=== PATIENT | female | born 1950 | race Caucasian/White ===

== ENCOUNTER 2016-04-27 10:05 | Day surgery (SDC) | payer MEDICARE ==
[2016-04-25 07:56] VITALS: BMI 34.5
--- NOTE | 2016-04-26 15:12 | HP ---
DATE OF ADMISSION: 04/27/2016 Luzma You is a 65-year-old patient seen with progressive right knee pain. After having treatment options discussed, she elected to proceed with right knee arthroscopy. Consent was obtained. Past medical history is noncontributory. Past surgical history is carpal tunnel release, section, cholecystectomy, right foot surgery, left knee arthroscopy. DAILY MEDICATION: Zoloft. Allergies are PENICILLIN, BACTRIM. SOCIAL HISTORY: Patient denies tobacco use. Physical evaluation of right knee: Range of motion 0 to 125 degrees, tenderness along the medial and lateral joint lines. Positive medial Shai's. Ligaments stable. Hip rotation without pain. Distal neurovascular exam intact. Radiographs of the right knee revealed moderate medial compartment osteoarthritis. An MRI of the right knee revealed medial and lateral meniscal tears. IMPRESSION: Internal derangement of right knee with medial and lateral meniscal tears. PLAN: Right knee arthroscopy with partial meniscectomy and debridement.
[~2016-04-27 10:05] MED LIST: DEXAMETHASONE SOD PHOSPHATE 10 MG/ML 1 ML VIAL IV ONE; HYDROmorphone 1 MG/ML 1 ML SYRINGE IVP PRN; LACTATED RINGERS 1,000 ML IV SCH; LIDOCAINE 1% 20 ML VIAL (10MG/ML) FOR IV START INTRADERMA PRN; MIDAZOLAM 2 MG/2 ML VIAL IV PRN; SCOPOLAMINE 1.5MG/72HR PATCH TRANSDERM ONE; ceFAZolin 2 GM in SODIUM CHLORIDE 0.9% 100 ML IVPB ONE
[2016-04-27 10:50] VITALS: RESP 16
[2016-04-27] MEDS ORDERED: LACTATED RINGERS 1,000 ML IV ONE ×2 (10:53→14:10)
[2016-04-27] MEDS ORDERED: LIDOCAINE 1% 20 ML VIAL (10MG/ML) FOR IV START SQ ONE (10:54)
[2016-04-27] MEDS: ONDANSETRON 4 MG/2 ML VIAL IVP ONE ×2 (10:55→14:08)
[2016-04-27] MEDS ORDERED: PROPOFOL 10 MG/ML 20 ML VIAL IV ONE (12:35)
[2016-04-27] MEDS ORDERED: MIDAZOLAM 2 MG/2 ML VIAL ONE (12:35)
[2016-04-27] MEDS ORDERED: LIDOCAINE 1% INJ 10MG/ML (20 ML MDV) ONE (12:35)
[2016-04-27] MEDS ORDERED: HYDROmorphone (PF) 1 MG/ML ONE (12:35)
[2016-04-27] MEDS ORDERED: GLYCOPYRROLATE 0.2 MG/ML 2 ML VIAL ONE (12:35)
[2016-04-27] MEDS ORDERED: NEOSTIGMINE 1 MG/ML 10 ML VIAL ONE (12:35)
[2016-04-27] MEDS ORDERED: fentaNYL (PF) 50 MCG/ML 2 ML AMP ONE (12:35)
[2016-04-27] MEDS ORDERED: ROCURONIUM BROMIDE 10 MG/ML 10 ML VIAL IV ONE (12:35)
[2016-04-27] MEDS ORDERED: SUCCINYLCHOLINE CHLORIDE 100 MG/5 ML SYR IV ONE (12:35)
[2016-04-27 13:32] VITALS: TEMP 97.5
--- NOTE | 2016-04-27 13:32 | P.OP ---
Date of Procedure: 04/27/16 Preoperative Diagnosis: Internal derangement right knee Postoperative Diagnosis: 1. Tear medial and lateral meniscus right knee 2. Grade 3/4 chondromalacia medial femoral condyle right knee 3. Grade 3/4 chondromalacia lateral femoral condyle right knee 4. Grade 2/3 chondromalacia patella right knee 5. Reactive synovitis medial and suprapatellar compartments right knee Procedure(s) Performed: 1. Arthroscopic partial medial and lateral meniscectomy right knee 2. Arthroscopic chondroplasty medial femoral condyle right knee 3. Arthroscopic chondroplasty lateral femoral condyle right knee 4. Arthroscopic chondroplasty patella right knee 5. Arthroscopic partial synovectomy medial and suprapatellar compartments right knee Anesthesia: FANNY Surgeon: Joseph Rodney Estimated Blood Loss (ml): 10 Pathology: none sent Condition: stable Disposition: PACU Indications for Procedure: 65-year-old patient seen with progressive right knee pain. After having treatment options discussed, she elected to proceed with right knee arthroscopy. Operative Findings: see description of procedure Description of Procedure: Patient was taken to the operative suite. Patient underwent a general anesthetic by the department of anesthesia. Patient was given preoperative antibiotics. The right lower extremity was placed in a well-padded arthroscopic leg thompson. The right leg was prepped and draped in the normal sterile orthopedic fashion. A lateral parapatellar and suprapatellar incision was made. Trochars were inserted. Arthroscopy was initiated. Suprapatellar pouch revealed diffuse thick reactive synovitis. The patellofemoral joint appeared to articulate congruently. There was grade 2/3 chondromalacia. The scope was guided into the medial gutter. No loose bodies or plica identified. The scope was then guided into the medial compartment. A medial parapatellar incision was made. Trocar inserted followed by probe. There was a complex tear involving the posterior horn and midbody of the medial meniscus. There were grade 3/4 chondromalacia changes of the medial femoral condyle and grade 3 chondral malacia changes of the tibial plateau. Reactive synovitis anteriorly. Various hand basket instruments were introduced and a partial medial meniscectomy was performed on a stable tissue. I performed a chondroplasty medial femoral condyle. There is of the residual meniscus was probed and found to be stable. Scope and probe were then guided into the intercondylar notch. Cruciates were identified, probed and found to be stable. The scope and probe were then guided into lateral compartment. There was a radial tear involving the posterior horn and midbody of the lateral meniscus. There were grade 3/4 chondral malacia changes lateral femoral condyle and grade 3 chondromalacia of the tibial plateau. A partial lateral meniscectomy was performed on a stable tissue. I performed a chondroplasty of lateral femoral condyle and partial synovectomy. The residual meniscus was probed and found to be stable. The scope was in guided back into the suprapatellar compartment. A motorized shaver was introduced into the super compartment debriding out piecemeal fragments of meniscus. I performed a partial synovectomy. I performed a chondroplasty of the patella. The shaver was removed. I took one more look around the entire knee, no residual debris. Instruments were now removed from the joint. The joint was infiltrated with .25% Marcaine. Steri-Strips were applied to the portal sites. Sterile dressings were applied. The patient was placed into a ARYAN hose. No tourniquet was utilized. The patient was awakened, transferred to a bed and taken to recovery stable satisfactory condition.
[2016-04-27] MEDS ORDERED: METOCLOPRAMIDE 5 MG/ML 2 ML VIAL IVP ONE (14:30)
[2016-04-27 17:20] VITALS: BP 129/72; PULSE 98
== END 2016-04-27 17:00 | disposition home or self-care (01) ==
LOC: OR 10:05
PROVIDERS: ATTEND Orthopaedic Surgery
DX: S83.241A Other tear of medial meniscus, current injury, right knee, initial encounter (principal); S83.281A Other tear of lateral meniscus, current injury, right knee, initial encounter; X58.XXXA Exposure to other specified factors, initial encounter; M22.41 Chondromalacia patellae, right knee; M94.261 Chondromalacia, right knee; M65.861 Other synovitis and tenosynovitis, right lower leg; F41.9 Anxiety disorder, unspecified; F32.9 Major depressive disorder, single episode, unspecified; Z79.899 Other long term (current) drug therapy; Z88.0 Allergy status to penicillin; Z88.2 Allergy status to sulfonamides
CPT/HCPCS: 29880; J2250; J1100; J2710; J2765; J0690; J2405; J2001; J3010; J1170; J0330; J2704

== ENCOUNTER → 2017-10-26 | Outpatient (CLI) | payer MEDICARE ==
--- NOTE | 2017-10-27 08:56 | ECHOF ---
Referral Reason:R01.1 Cardiac Murmur Unspecified MEASUREMENTS -------- HEIGHT: 157.5 cm WEIGHT: 85.7 kg BP: RVIDd: 2.5 cm (< 3.3) IVSd: 1.2 cm (0.6 - 1.1) LVIDd: 4.0 cm (3.9 - 5.3) LVPWd: 1.2 cm (0.6 - 1.1) IVSs: 1.6 cm LVIDs: 2.2 cm LVPWs: 1.6 cm LAESV Index (A-L): 33.28 ml/m Ao Diam: 2.9 cm (2.0 - 3.7) AV Cusp: 1.5 cm (1.5 - 2.6) LA Diam: 3.5 cm (2.7 - 3.8) EPSS: 0.3 cm MV E Cb: 0.93 m/s MV DecT: 244 ms MV A Cb: 0.85 m/s MV E/A Ratio: 1.10 RAP: 5.00 mmHg RVSP: 31.01 mmHg MV EF SLOPE: 100.86 mm/s (70 - 150) MV EXCURSION: 1.49 cm (> 18.000) FINDINGS -------- Sinus rhythm. This was a technically adequate study. The left ventricular size is normal. There is mild concentric left ventricular hypertrophy. Overa ll left ventricular systolic function is normal with, an EF between 55 - 60 %. The right ventricle is normal in size and function. LA is midly dilated 29-33ml/m2. The right atrium is normal in size. Aortic valve is trileaflet and is mildly thickened. Trace to mild aortic regurgitation. There is no evidence of aortic stenosis. The mitral valve leaflets are mildly thickened. There is trace to mild mitral regurgitation. Trace tricuspid regurgitation present. Right ventricular systolic pressure is normal at < 35 mmHg. There is no evidence of pulmonary hypertension. The pulmonic valve was not well visualized. The aortic root size is normal. Normal inferior vena cava with normal inspiratory collapse consistent with estimated right atrial pre ssure of 5 mmHg. There is no pericardial effusion. CONCLUSIONS -------- 1. Sinus rhythm. 2. This was a technically adequate study. 3. The left ventricular size is normal. 4. There is mild concentric left ventricular hypertrophy. 5. Overall left ventricular systolic function is normal with, an EF between 55 - 60 %. 6. LA is midly dilated 29-33ml/m2. 7. Aortic valve is trileaflet and is mildly thickened. 8. Trace to mild aortic regurgitation. 9. The mitral valve leaflets are mildly thickened. 10. There is trace to mild mitral regurgitation. 11. Trace tricuspid regurgitation present. 12. Right ventricular systolic pressure is normal at < 35 mmHg. 13. There is no evidence of pulmonary hypertension. 14. The pulmonic valve was not well visualized. 15. The aortic root size is normal. 16. There is no pericardial effusion. BLUNGER: Alejandro Rocha RDCS
== END | disposition home or self-care (01) ==
LOC: RADECHMAIN 15:01
PROVIDERS: ATTEND Family Medicine
DX: I08.3 Combined rheumatic disorders of mitral, aortic and tricuspid valves (principal)
CPT/HCPCS: 93306

== ENCOUNTER → 2017-11-06 | Outpatient (CLI) | payer MEDICARE ==
--- NOTE | 2017-11-06 08:44 | US ---
EXAMINATION TYPE: US abdomen complete DATE OF EXAM: 11/06/2017 COMPARISON: Ultrasound of 2011 CLINICAL HISTORY: R10.11 RT UPPER QUADRANT PAIN. RUQ pain ongoing, no known injury, cholecystectomy EXAM MEASUREMENTS: Liver Length: 15.0 cm Gallbladder Wall: Surgically absent CBD: 0.6 cm Spleen: 10.3 cm Right Kidney: 10.6 x 4.4 x 3.7 cm Left Kidney: 10.4 x 3.1 x 4.2 cm Pancreas: wnl Liver: intercostal images due to bowel gas. Hepatic echotexture is slightly hyperechoic with diminis hed visualization of the portal triads. This most commonly relates to hepatic steatosis and limits ev aluation of underlying hepatic masses. Gallbladder: Surgically absent Evidence for sonographic Mcdonald's sign: no CBD: wnl Spleen: wnl Right Kidney: No hydronephrosis or nephrolithiasis. The previously seen echogenic renal mass is not well visualized on today's examination. Left Kidney: No hydronephrosis or nephrolithiasis. The previously seen echogenic renal mass is not well visualized on today's examination. Upper IVC: wnl Abd Aorta: proximal area gassed out IMPRESSION: 1. Status post cholecystectomy. 2. Findings suggesting a mild degree of hepatic steatosis. 3. 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 Bowel gas also limits evaluation of the proximal ab dominal aorta.
== END | disposition home or self-care (01) ==
LOC: RADUSWWP 06:52
PROVIDERS: ATTEND Family Medicine
DX: R10.11 Right upper quadrant pain (principal); Z90.49 Acquired absence of other specified parts of digestive tract
CPT/HCPCS: 76700

== ENCOUNTER → 2017-11-21 | Outpatient (CLI) | payer MEDICARE ==
[2017-11-21 08:41] LABS: Blood Urea Nitrogen 14 mg/dL (7-17)
--- NOTE | 2017-11-21 10:44 | CT ---
EXAMINATION TYPE: CT abdomen w con DATE OF EXAM: 11/21/2017 HISTORY: RUQ pain, swelling, history of lymphoma (Lt neck) CT DLP: 658.5mGycm Automated Exposure Control for Dose Reduction was Utilized. CONTRAST: CT scan of the abdomen is performed with IV Contrast, patient injected with 100 mL of Isovue 300. COMPARISON: CT abdomen and pelvis October 28, 2014. Recent complete abdominal ultrasound November 06, 2017. FINDINGS: LUNG BASES: There is suspected moderate biatrial dilatation. Heart size is upper limits of normal. LIVER/GB: Cholecystectomy clips are redemonstrated. Liver is heterogeneously hypodense suggesting mil d fatty infiltration as suspected on recent ultrasound. PANCREAS: No significant abnormality is seen. SPLEEN: No significant abnormality is seen. ADRENALS: No significant abnormality is seen. KIDNEYS: There is redemonstration of a few scattered subcentimeter low dense lesions throughout both kidneys too small to further characterize but presumed benign favoring fat density or angiomyolipomas . BOWEL: There is slightly more prominent small to moderate size sliding-type hiatal hernia. The oral c ontrast only reaches proximal ileal level. There is no suspicious small or large bowel dilatation. Th ere is fecal filled prominence of terminal ileum suggesting delayed passage of ingested material 2 co lonic level. Mild wall thickening in the colon at level of splenic flexure is present presumed produc t of poor distention over mild focal colitis. A few scattered colonic diverticula are seen. No CT jairon dence for acute diverticulitis. LYMPH NODES: No greater than 1cm abdominal lymph nodes are appreciated. OSSEOUS STRUCTURES: There is exaggerated thoracolumbar curvature. There is moderate to severe multile ericka spurring in the thoracic and upper lumbar spine. There is moderate disc space narrowing with vacu um disc phenomenon and endplate sclerosis L1-L2 level. There is slight grade 1 anterolisthesis of L4 on L5. There is multilevel facet arthropathy in the mid to lower lumbar spine. OTHER: There is mild to moderate calcified plaque of aorta extending into branch vessels IMPRESSION: No hepatosplenomegaly. No suspicious new adenopathy.
== END | disposition home or self-care (01) ==
LOC: RADCTMAIN 07:52
PROVIDERS: ATTEND Family Medicine
DX: R10.9 Unspecified abdominal pain (principal)
CPT/HCPCS: 82565; 84520; 74160; 36415; Q9967

== ENCOUNTER → 2019-06-20 | Outpatient (CLI) | payer MEDICARE ==
[2019-06-20 14:11] LABS: Basophils # (A) 0.1 k/uL (0-0.2); Basophils % (A) 1 %; Eosinophils # (A) 0.1 k/uL (0-0.7); Eosinophils % (A) 2 %; HCT 46.7 % (34.0-46.0); HGB 14.9 gm/dL (11.4-16.0); Lymphocytes # (A) 2.5 k/uL (1.0-4.8); Lymphocytes % (A) 35 %; MCH 30.6 pg (25.0-35.0); MCV 95.5 fL (80.0-100.0); Mean Platelet Volume 7.9; Monocytes # (A) 0.5 k/uL (0-1.0); Monocytes % (A) 7 %; Neutrophils # (A) 3.5 k/uL (1.3-7.7); Neutrophils % (A) 51 %; Platelet Count 230 k/uL (150-450); RBC 4.89 m/uL (3.80-5.40); RDW 13.1 % (11.5-15.5); WBC 6.9 k/uL (3.8-10.6)
[2019-06-20 14:18] LABS: Prothrombin Time 10.3 sec (9.0-12.0)
[2019-06-20 14:47] LABS: Potassium 4.7 mmol/L (3.5-5.1)
== END | disposition home or self-care (01) ==
LOC: LABPAT 12:48
PROVIDERS: ATTEND Orthopaedic Surgery
DX: Z01.818 Encounter for other preprocedural examination (principal); Z01.812 Encounter for preprocedural laboratory examination; M17.11 Unilateral primary osteoarthritis, right knee; Z51.81 Encounter for therapeutic drug level monitoring; Z79.01 Long term (current) use of anticoagulants
CPT/HCPCS: 36415; 80051; 85025; 85610; 87070; 93005

== ENCOUNTER → 2019-11-07 | Outpatient (CLI) | payer MEDICARE | LOC: LABPAT 11:27 | PROVIDERS: ATTEND Orthopaedic Surgery | DX: Z01.812 Encounter for preprocedural laboratory examination (principal) | CPT/HCPCS: 87070 ==

== ENCOUNTER 2019-12-08 08:14 | Day surgery (SDC) | payer MEDICARE ==
[2019-12-01 14:50] VITALS: BMI 33.0
--- NOTE | 2019-12-06 21:59 | HP ---
HISTORY AND PHYSICAL DATE OF SURGERY: 12/08/2019 Luzma You is a 69-year-old patient seen with progressive symptomatic right knee osteoarthritis. We discussed options for treatment. She elected to proceed with right total knee arthroplasty. Consent was obtained. Clearance was provided by Dr. Selby. PAST MEDICAL HISTORY: Noncontributory. PAST SURGICAL HISTORY: Carpal tunnel release, section, cholecystectomy, right foot surgery, left knee surgery. MEDICATIONS: Zoloft. ALLERGIES: PENICILLIN and BACTRIM. SOCIAL HISTORY: She denies tobacco use. PHYSICAL EXAMINATION: Evaluation right knee: Range of motion is -2/3-120. Tenderness medial joint line. Crepitus medial patellofemoral compartments with range of motion. Pain with patellofemoral compression. Ligaments stable. Hip rotation without pain. Distal neurovascular exam intact Right knee radiographs reveal severe osteoarthritic changes. IMPRESSION: Right knee osteoarthritis. PLAN: Right total knee arthroplasty. MMODL / IJN: [id number] /
[~2019-12-08 08:14] MED LIST changes: +ACETAMINOPHEN TAB 500 MG TAB PO ONE; -DEXAMETHASONE SOD PHOSPHATE 10 MG/ML 1 ML VIAL IV ONE; +HYDROmorphone 0.5 MG/0.5 ML SYRINGE IVP PRN; -HYDROmorphone 1 MG/ML 1 ML SYRINGE IVP PRN; +LIDOCAINE 1% (10MG/ML) FOR IV START INTRADERMA PRN; -LIDOCAINE 1% 20 ML VIAL (10MG/ML) FOR IV START INTRADERMA PRN; +MELOXICAM 7.5 MG TAB PO ONE; -MIDAZOLAM 2 MG/2 ML VIAL IV PRN; +ONDANSETRON 4 MG/2 ML VIAL IVP ONE; +ROPIVACAINE 246.25 MG, EPINEPHrine 0.5 MG, KETOROLAC 30 MG, cloNIDine HCL/PF 80 MCG, WA... MISCELLANE ONE; -SCOPOLAMINE 1.5MG/72HR PATCH TRANSDERM ONE; +TRANEXAMIC ACID 1,000 MG in SODIUM CHLORIDE 0.9% 100 ML IVPB ONE; -ceFAZolin 2 GM in SODIUM CHLORIDE 0.9% 100 ML IVPB ONE
[2019-12-08] MEDS ORDERED: MIDAZOLAM 2 MG/2 ML VIAL IVP ONE ×2 (08:15→09:24)
[2019-12-08] MEDS ORDERED: ACETAMINOPHEN TAB 500 MG TAB ONE (08:49)
[2019-12-08] MEDS ORDERED: ONDANSETRON 4 MG/2 ML VIAL ONE (08:49)
[2019-12-08] MEDS ORDERED: fentaNYL (PF) 50 MCG/ML 2 ML AMP IVP ONE (09:24)
[2019-12-08] MEDS ORDERED: ROPIVACAINE 0.2%-NS ON-Q PUMP 1,090 MG, EMPTY PAIN BALL 1 EACH MISCELLANE PRN ×2 (09:24→10:40)
[2019-12-08] MEDS ORDERED: PROPOFOL 10 MG/ML 20 ML VIAL IV ONE (10:00)
[2019-12-08] MEDS ORDERED: KETAMINE 10 MG/ML 20 ML VIAL ONE (10:00)
[2019-12-08] MEDS ORDERED: HYDROmorphone (PF) 1 MG/ML ONE (10:00)
[2019-12-08] MEDS ORDERED: MIDAZOLAM 2 MG/2 ML VIAL ONE (10:00)
[2019-12-08] MEDS ORDERED: ceFAZolin 3,000 MG in SODIUM CHLORIDE 0.9% IRRIGATIO 3,000 ML IRRIGATION ONE (10:36)
--- NOTE | 2019-12-08 10:42 | P.ANPRN ---
Procedure Note - Anesthesia - Nerve Block Performed Right Adductor Canal Infusion Time Out Performed: Yes Date of Procedure: 12/08/19 Procedure Start Time: 09:00 Procedure Stop Time: 09:10 Location of Patient: PreOp Indication: Acute Post-Operative Pain, Dx/Pain Location, Requested by Surgeon Sedation Type: Sedate with meaningful contact maintained Preparation: Sterile Prep Position: Supine Catheter: Indwelling Needle Types: Pajunk Needle Gauge: 21 Ultrasound used to visualize needle placement: Yes Ultrasound used to observe medication spread: Yes Injectate: 0.5% Ropivacaine (see comment for volume) (20ml) Blood Aspirated: No Pain Paresthesia on Injection Noted: No Resistance on Injection: Normal Image Stored and Saved: Yes Events: Uneventful and Well Tolerated
[2019-12-08] MEDS ORDERED: LACTATED RINGERS 1,000 ML IV ONE ×2 (11:02)
[2019-12-08] MEDS ORDERED: NALOXONE 0.4 MG/ML 1 ML VIAL IV PRN (11:40)
[2019-12-08] MEDS ORDERED: ONDANSETRON 4 MG/2 ML VIAL IVP PRN (11:40)
[2019-12-08] MEDS ORDERED: HYDROmorphone 0.5 MG/0.5 ML SYRINGE IVP PRN ×3 (11:40)
[2019-12-08] MEDS ORDERED: HYDROcodone/APAP 5-325MG 1 EACH TAB PO PRN ×2 (11:40)
--- NOTE | 2019-12-08 11:40 | P.OP ---
Date of Procedure: 12/08/19 Preoperative Diagnosis: Right knee osteoarthritis Postoperative Diagnosis: Right knee osteoarthritis Procedure(s) Performed: Right total knee arthroplasty Implants: 1. Depuy attune size 4 right cruciate retaining cemented femur 2. Depuy attune size 4 fixed bearing cemented tibial baseplate 3. Depuy attune size 4 fixed bearing cruciate retaining 12 mm polyethylene tibial insert 4. Depuy attune 35 mm all polyethylene cemented patella Anesthesia: regional (Adductor canal catheter), local, spinal Surgeon: Joseph Rodney Laboratory Secretary #1: Rj Floyd Estimated Blood Loss (ml): 45 Pathology: other (Bone) Condition: stable Disposition: PACU Indications for Procedure: 69-year-old patient seen with symptomatic right knee osteoarthritis. After having treatment options discussed, she elected to proceed with total knee arthroplasty. Operative Findings: see description of procedure Description of Procedure: Patient was taken to the operative suite after having an adductor canal catheter placed by the department of anesthesia. Patient underwent a spinal anesthetic by the department of anesthesia. Patient was given preoperative IV intake antibiotics and TXA. A well-padded tourniquet was placed about the right lower extremity. The lower extremity was then prepped and draped in the normal sterile orthopedic fashion. The extremity was elevated, a tourniquet was insufflated to 300. A standard anterior incision was made sharply through skin. Dissection was taken down through the subcutaneous soft tissues down to the extensor mechanism. A medial arthrotomy was performed, patella was everted and knee was flexed. There was advanced osteoarthritis noted. I introduced my distal intramedullary femoral drill. I then introduced the distal femoral cutting jig. Kendall ALEMAN secured the cutting jig with 2 pins. I held retractors in position while Kendall ALEMAN performed the distal femoral resection through the guide area we now removed her distal femoral cutting guide. We now placed our 4-in-1 femoral cutting block and positioned and it was secured with 2 pins by Kendall ALEMAN while I held the block in position. The distal femoral finishing was now completed. A proximal tibial cutting guide was positioned. I held the guide in the appropriate position with both hands well Kendall ALEMAN inserted stabilizing pins into the guide. Proximal tibial cut was made. We now placed a trial femoral component into position, along with an appropriate size tibial tray and insert. We now took the knee through range of motion and had full extension good flexion and good overall soft tissue balance noted. The patella was everted and stabilized with 2 towel clips held by Kendall ALEMAN while I performed a flush with patellar quad tendon utilizing a fresh sawblade. We templated the patella, appropriate drill holes were made. An appropriate trial patella was positioned, knee was taken through full range of motion with the patella tracking very nicely. The trial patella was removed. Drill holes were made through the femoral component. All trial components were removed after marking off the appropriate rotation of the tibia. Retractors were now positioned along the proximal tibia. An appropriate keel punch was made with the appropriate size tibial guide by myself on Kendall ALEMAN assisted by holding retractors. At this point appropriate size implants were chosen and opened. The joint was irrigated copiously with pulse lavage mechanical irrigation. The posterior capsule was infiltrated with local analgesic. The wound was irrigated with pulse lavage mechanical irrigation. We mixed antibiotic methylmethacrylate. We placed the knee into flexion. We placed multiple retractors assisted by Kendall ALEMAN to expose the proximal tibia. Once the methyl methacrylate was ready, the tibial component was cemented into place removing any excess methylmethacrylate form by both myself and Kendall ALEMAN. The femoral component was cemented into place removing the removing any excess methylmethacrylate performed by both myself and Kendall ALEMAN. We then inserted the appropriate size polyethylene tibial insert. We made sure that it was locked into position. We took the knee into full extension, and then back in a flexion making sure we had removed any excess methylmethacrylate. The patellar component was then cemented down and secured with clamp. Excess methylmethacrylate removed. We kept the knee in full extension, patellar clamp in position until methylmethacrylate had hardened. Once it had hardened the p atellar clamp was removed. The knee was taken through full range of motion. The patella tracked nicely. There was good soft tissue balancing. The tourniquet was now released. Additional hemostasis was achieved via electrocautery. A second gram of TXA was given. The wound again was irrigated with pulse lavage mechanical irrigation. The superficial soft tissues were infiltrated local analgesic. The extensor mechanism was repaired with Vicryl. We checked the repair with range of motion and it was stable. The subcutaneous soft tissues were repaired with Vicryl in layers. The skin was approximated with pernio/Dermabond. Sterile dressings were applied followed by loose web roll and Robb bandage. The patient was transferred to a bed, and taken to recovery in stable and satisfactory condition. Kendall ALEMAN assisted with this complex procedure.
--- NOTE | 2019-12-08 13:58 | XR ---
EXAMINATION TYPE: XR knee limited RT DATE OF EXAM: 12/08/2019 COMPARISON: None HISTORY: Post knee replaced TECHNIQUE: 2 view right knee FINDINGS: Tibial and femoral components of in place. No acute fractures are evident. Postsurgical ben nges are within the soft tissues. IMPRESSION: 1. No acute fracture post knee replacement.
[2019-12-08] MEDS: LACTATED RINGERS 1,000 ML IV SCH ×3 (20:14→23:38)
--- NOTE | 2019-12-08 20:25 | P.CONS ---
History of Present Illness - Reason for Consult Consult date: 12/08/19 Medical management Requesting physician: Joseph Rodney - Chief Complaint Right knee surgery - History of Present Illness Consultation: This is a 69-year-old patient of Dr. Selby. Patient has undergone right total knee arthroplasty. Patient had progressive symptoms in the right knee. Tried conservative management. Did not work. Has proceeded with surgery. Pain pretty much localized to right knee. Worse with activity and better with rest. Postprocedure patient is having nausea. Tired. at the bedside. No chest pain or shortness of breath Review of systems: GEN.: None EYES: None HEENT: None NECK: None RESPIRATORY: None CARDIOVASCULAR: Nausea GASTROINTESTINAL: None GENITOURINARY: None MUSCULOSKELETAL: [place] knee pain LYMPHATICS: None HEMATOLOGICAL: None PSYCHIATRY: None NEUROLOGICAL: None Past medical history to include: Cedric arthritis, melanoma the left shoulder in 2003, including the left. Had chemotherapy for a year. Constipation. Anxiety Social history: . No history of smoking or alcohol. Homemaker Physical examination: VITAL SIGNS: 97.6, 99, 17, 154/79, 96% room air GENERAL: BMI 32.9, propped up in bed, sleepy. EYES: Pupils equal. Conjunctiva normal. HEENT: External appearance of nose and ears normal, oral cavity grossly normal. NECK: JVD not raised; masses not palpable. HEART: First and second heart sounds are normal; no edema. LUNGS: Respiratory rate normal; clear to auscultation. ABDOMEN: Soft, nontender, liver spleen not palpable, no masses palpable. PSYCH: Oriented 3, sleepy but arousablel. MUSCULAR skeletal: Dressing over the right knee. Evidence of OA the hands NEUROLOGICAL: Cranial nerves grossly intact; no facial asymmetry, power and sensation grossly intact. LYMPHATICS: No lymph nodes palpable in the axilla and neck Investigations: None Assessment: -Right total knee arthroplasty -Primary osteoarthritis -Anxiety not otherwise specified -Postop nausea as a side effect of medications -Obesity BMI 32.9 Plan: Home medications to be resumed. Patient will Lovenox for DVT prophylaxis. Pain control in place. Getting IV fluids. Antinausea medications given. Discussed with the patient and the . Questions answered. Thank you Dr. Suresh Past Medical History Past Medical History: Cancer, Osteoarthritis (OA) Additional Past Medical History / Comment(s): MELANOMA LT SHOULDER 2003, THEN TO LT NECK AND LYMPH NODES 2006, chemo for a year, constipation History of Any Multi-Drug Resistant Organisms: None Reported Past Surgical History: Section, Cholecystectomy, Orthopedic Surgery Additional Past Surgical History / Comment(s): OOPHORECTOMY. LT KNEE LIGAMENT SURG-CADAVER USED. FATIMAH FEET, HANDS. EXC MELANOMA SKIN LT SHOULDER; LATER HAD EXC FROM NECK AND LYMPH NODES, arthroscopy right knee Past Anesthesia/Blood Transfusion Reactions: Previous Problems w/ Anesthesia, Postoperative Nausea & Vomiting (PONV) Additional Past Anesthesia/Blood Transfusion Reaction / Comm: TAKES LONG TIME TO AWAKEN FROM ANESTHESIA. Past Psychological History: Anxiety Smoking Status: Never smoker Past Alcohol Use History: None Reported Past Drug Use History: None Reported - Past Family History Father Family Medical History: Cancer Medications and Allergies Home Medications Medication Instructions Recorded Confirmed Type Cholecalciferol [Vitamin D3] 2,000 unit PO DAILY 09/02/15 12/08/19 History Sertraline HCl 50 mg PO HS 09/02/15 12/08/19 History calcium polycarbophiL [Fibercon] 625 mg PO DAILY 04/25/16 12/08/19 History Acetaminophen Tab [Tylenol] 650 mg PO Q4-6H PRN 12/01/19 12/08/19 History Ibuprofen 200 - 400 mg PO Q6H PRN 12/01/19 12/08/19 History Vitamin E 400 unit PO HS 12/08/19 12/08/19 History Allergies Allergy/AdvReac Type Severity Reaction Status Date / Time hydroxychloroquine sulfate Allergy Mild Rash/Hives Verified 12/08/19 08:31 [From Plaquenil] Penicillins Allergy Itching Verified 12/08/19 08:31 sulfamethoxazole Allergy Swelling Verified 12/08/19 08:31 [From Bactrim] IN THROAT trimethoprim [From Bactrim] Allergy Swelling Verified 12/08/19 08:31 IN THROAT codeine AdvReac Nausea & Verified 12/08/19 08:31 Vomiting hydrocodone [From Vicodin] AdvReac Nausea & Verified 12/08/19 08:31 Vomiting Physical Exam Vitals: Vital Signs Temp Pulse Resp BP BP Pulse Ox 12/08/19 19:52 98.2 F 78 107/63 97 12/08/19 15:01 83 112/75 93 L 12/08/19 14:46 74 121/61 12/08/19 14:31 83 125/79 95 12/08/19 14:16 79 112/61 91 L 12/08/19 14:01 82 114/63 91 L 12/08/19 13:46 84 117/73 93 L 12/08/19 13:33 117 H 156/92 93 L 12/08/19 13:16 93 140/82 12/08/19 12:50 97.6 F 99 17 154/79 96 12/08/19 12:33 89 16 128/60 95 12/08/19 12:18 91 16 127/61 95 12/08/19 12:04 97.0 F L 94 16 139/66 95 12/08/19 09:46 83 16 132/60 98 12/08/19 08:29 98.4 F 88 16 167/92 96 Intake and Output 12/08/19 12/08/19 12/08/19 06:59 14:59 22:59 Intake Total 1801 Output Total 47 Balance 1754 Intake: IV 1701 Intake, IV Titration 100 Amount Lactated Ringers 1,000 ml 100 @ 100 mls/hr IV .Q10H [facility] Rx#:[id number] Output: Emesis 2 Estimated Blood Loss 45 Other: # Voids 1 Weight 80.4 kg
[2019-12-08] MEDS ORDERED: SENNOSIDES-DOCUSATE SODIUM 1 EACH TAB PO SCH (21:00)
[2019-12-08] MEDS ORDERED: SERTRALINE 50 MG TAB PO SCH (21:00)
[2019-12-08] MEDS ORDERED: VITAMIN E (DL,TOCOPHERYL ACET) 400 UNIT CAP PO SCH (21:00)
[2019-12-08] MEDS: ENOXAPARIN 30 MG/0.3 ML SYRINGE SQ SCH (21:11)
--- NOTE | 2019-12-09 06:14 | P.PN ---
Progress Note - Text Progress Note Date: 12/09/19 69 year-old female status post right total knee arthroplasty postop day #1. Patient had continuous adductor canal catheter. Patient doing well. VAS ranges from a 2-4 out of 10 in severity, catheter site looks clean dry and intact. She has complaints of quadricep pain, knee pain well-controlled. He has been ambulating well. Overall doing well likely discharged home today.
[2019-12-09 06:56] VITALS: BP 104/61; PULSE 76; RESP 16; TEMP 98.9
[2019-12-09] MEDS: LACTATED RINGERS 1,000 ML IV SCH (07:07)
[2019-12-09] MEDS: ENOXAPARIN 30 MG/0.3 ML SYRINGE SQ SCH (07:10)
[2019-12-09 08:05] LABS: Basophils % (A) 0 %; Eosinophils # (A) 0.1 k/uL (0-0.7); Eosinophils % (A) 1 %; HCT 38.5 % (34.0-46.0); HGB 12.5 gm/dL (11.4-16.0); Lymphocytes # (A) 0.8 k/uL (1.0-4.8); Lymphocytes % (A) 12 %; MCH 30.4 pg (25.0-35.0); MCHC 32.4 g/dL (31.0-37.0); MCV 93.6 fL (80.0-100.0); Mean Platelet Volume 8.2; Monocytes # (A) 0.4 k/uL (0-1.0); Monocytes % (A) 6 %; Neutrophils # (A) 5.5 k/uL (1.3-7.7); Neutrophils % (A) 80 %; Platelet Count 172 k/uL (150-450); RBC 4.12 m/uL (3.80-5.40); RDW 13.5 % (11.5-15.5); WBC 6.9 k/uL (3.8-10.6)
[2019-12-09] MEDS ORDERED: MELOXICAM 7.5 MG TAB PO SCH (09:00)
[2019-12-09] MEDS ORDERED: ONDANSETRON 4 MG/2 ML VIAL IVP PRN (09:38)
[2019-12-09] MEDS ORDERED: NALOXONE 0.4 MG/ML 1 ML VIAL IV PRN (09:38)
--- NOTE | 2019-12-09 11:23 | P.PN ---
Subjective Progress Note Date: 12/09/19 Principal diagnosis: Status post right total knee arthroplasty Patient is examined today at bedside, she's doing very well. She's having increasing pain, she has a hard time taking oral narcotics. She is done well with therapy. She denies any chest pain or shortness of breath. Objective - Vital Signs Vital signs: Vital Signs Temp 98.9 F 12/09/19 06:55 Pulse 76 12/09/19 06:55 Resp 16 12/09/19 06:55 BP 104/61 12/09/19 06:55 Pulse Ox 95 12/09/19 06:55 Intake & Output 12/08/19 12/09/19 12/09/19 18:59 06:59 18:59 Intake Total 1801 Output Total 47 Balance 1754 Weight 80.4 kg Intake: IV 1701 Intake, IV Titration 100 Amount Lactated Ringers 1,000 ml 100 @ 100 mls/hr IV .Q10H ESPERANZA Rx#:[id number] Output: Emesis 2 Estimated Blood Loss 45 Other: # Voids 2 1 - Exam Right lower extremity: Incision is clean, dry, and intact. The foam dressing is in good condition. There is minimal soft tissue swelling and ecchymosis surrounding the medial and lateral aspects of the incision. Calf is soft, no tenderness with palpation. Plantar flexion, dorsiflexion, EHL, FHL are intact. Sensory exam to light touch throughout the extremity is intact, dorsal pedis pulses 2+. - Labs CBC & Chem 7: 12/09/19 07:13 Labs: Abnormal Lab Results - Last 24 Hours (Table) 12/09/19 Range/Units 07:13 Lymphocytes # 0.8 L (1.0-4.8) k/uL Assessment and Plan Assessment: Status post right total knee arthroplasty Plan: Pain control, we'll try tramadol 50 mg. We'll plan also sent home with Zofran 8 mg tablets GI and DVT prophylaxis, aspirin 81 mg twice a day Wound care instructions were discussed Icing and elevating techniques were discussed Therapy and nursing after discharge Medical recommendations Plan for discharge home today Time with Patient: Less than 30
--- NOTE | 2019-12-09 11:25 | P.DS ---
Providers Date of admission: 12/08/2019 Expected date of discharge: 12/09/19 Attending physician: Joseph Rodney Consults: 12/08/19 11:40 Consult Physician Routine Consulting Provider: Khari Barragan Consult Reason/Comments: Medical management Do you want consulting provider notified?: Yes Primary care physician: Vladimir Selby Hospital Course: Date of admission: 12/08/2019 Date of discharge: 12/09/2019 Admission diagnosis: Status post right total knee arthroplasty Discharge diagnosis: Same Attending physician: Dr. Rodney Surgical procedures: Right total knee arthroplasty Brief history: Patient is a 69-year-old female with a history of progressive primary right knee osteoarthritis. At this point patient has failed conservative treatment measures and has opted to proceed with a elective right total knee arthroplasty. Hospital course: Details of patient's surgery can be found in operative report. Patient tolerated the procedure well and was subsequently transported to orthopedic floor. Patient's orthopeidc and medical care was provided daily. Patient had daily laboratory tests performed for evaluation of overall blood counts. Patient had daily physical therapy to include strengthening range of motion as well as education with walker ambulation. Patient was treated with Lovenox for their postoperative DVT prophylaxis during their inpatient stay. Jake oro was noted to have a relatively uneventful postoperative course. Patient reported satisfactory pain control with oral pain medications by postoperative day 0. Patient showed satisfactory progress with physical therapy. Patient moved steadily through the program and had no difficulty meeting the goals by postoperative day 1. Given patient's otherwise satisfactory course and having met physical therapy goals, plan is to discharge patient home on postoperative day 1. Discharge condition/disposition: Patient will be discharged home in stable condition. Discharge medications: Instructions are given on resumption of patient's normal daily medications per primary care recommendation, in addition patient will be prescribed tramadol 50 mg, Zofran 8 mg, Colace 100 mg, aspirin 81 mg. Discharge instructions: 1. Wound care and infection precautions, keep incision dry and covered while showering, no lotions, creams, moisturizers. No soaking, tubs, pools, hottubs. Do not scrub over the incision. 2. Weight-bear as tolerated with walker / cane until follow-up. 3. Ice and elevate when necessary. Do not exceed 20 minutes per hour with ice pack. 4. Utilize compression sleeve until seen at first follow up appointment. 5. Visiting nursing care. 6. Home physical therapy including home CPM. 7. Pain meds and anticoagulants per prescription. 8. Pain medication has potential to cause constipation. Increase oral fluid and fiber intake. Contact primary care provider if you have not had a bowel movement within 48 hours after discharge 9. No anti-inflammatory medication until discussed at first post operative visit, this including Motrin, Aleve, Mobic, Diclofenac. 10. Follow up in office at 2 weeks postop with Kendall Floyd PA-C 11. Follow up with your primary care doctor 7-10 days after discharge. 12. Contact [facility] with any questions, . Procedures: Right total knee arthroplasty Patient Condition at Discharge: Good Plan - Discharge Summary Discharge Rx Participant: Yes New Discharge Prescriptions: New Aspirin [Adult Low Dose Aspirin EC] 81 mg PO BID #60 tablet. Doczhao [Colace] 100 mg PO DAILY #30 capsule traMADol HCl [Ultram] 50 mg PO Q6H PRN #28 tab PRN Reason: Pain Ondansetron HCl [Zofran] 8 mg PO Q12H PRN #14 tab PRN Reason: Nausea And Vomiting Continue Sertraline HCl 50 mg PO HS Cholecalciferol [Vitamin D3 (25 Mcg = 1000 Iu)] 2,000 unit PO DAILY calcium polycarbophiL [Fibercon] 625 mg PO DAILY Acetaminophen Tab [Tylenol] 650 mg PO Q4-6H PRN PRN Reason: Pain Vitamin E 400 unit PO HS No Action Ibuprofen 200 - 400 mg PO Q6H PRN PRN Reason: Pain Discharge Medication List Cholecalciferol [Vitamin D3 (25 Mcg = 1000 Iu)] 2,000 unit PO DAILY 09/02/15 [History] Sertraline HCl 50 mg PO HS 09/02/15 [History] calcium polycarbophiL [Fibercon] 625 mg PO DAILY 04/25/16 [History] Acetaminophen Tab [Tylenol] 650 mg PO Q4-6H PRN 12/01/19 [History] Ibuprofen 200 - 400 mg PO Q6H PRN 12/01/19 [History] Vitamin E 400 unit PO HS 12/08/19 [History] Aspirin [Adult Low Dose Aspirin EC] 81 mg PO BID #60 tablet. 12/09/19 [Rx] Trish [Colace] 100 mg PO DAILY #30 capsule 12/09/19 [Rx] Ondansetron HCl [Zofran] 8 mg PO Q12H PRN #14 tab 12/09/19 [Rx] traMADol HCl [Ultram] 50 mg PO Q6H PRN #28 tab 12/09/19 [Rx] Follow up Appointment(s)/Referral(s): Vladimir Selby MD [Primary Care Provider] - 1 Week [facility], [NON-STAFF] - Rj Floyd PAC [PHYSICIAN CUSTOMER RECORDS DIVISION SUPERVISOR] - 12/24/19 2:30 pm Patient Instructions/Handouts: *Surgery [facility] - On-Q Pain Pump Discharge Instructions, Knee Replacement (DC) Activity/Diet/Wound Care/Special Instructions: Orthopedic Discharge Instructions: 1. Wound care and infection precautions, keep incision dry and covered while showering, no lotions, creams, moisturizers. No soaking, pools, hot tubs. Do not scrub over incision. 2. Weight-bear as tolerated with walker / cane until follow-up. 3. Ice and elevate when necessary. Do not exceed 20 minutes per hour with ice pack. 4. Utilize compression sleeve until seen at first follow up appointment. 5. Pain meds and anticoagulants per prescription. 6. Pain medication has potential to cause constipation. Increase oral fluid and fiber intake. Contact primary care provider if you have not had a bowel movement within 48 hours after discharge. 7. No anti-inflammatory medication until discussed at first post operative visit, this including Motrin, Aleve, Mobic, Diclofenac. 8. Follow up in office at 2 weeks postop with Kendall Floyd PA-C 9. Follow up with your primary care doctor 7-10 days after discharge. 10. Contact [facility] with any questions, [phone]. 11. *Please call [employer] once home to arrange delivery of Continuous Passive Motion (CPM) machine: [phone]* Discharge Disposition: HOME WITH HOME HEALTH SERVICES
[2019-12-09] MEDS ORDERED: traMADol 50 MG TAB PO STA (12:37)
[2019-12-09] MEDS ORDERED: traMADol 50 MG TAB PO SCH ×3 (13:00→18:00)
--- NOTE | 2019-12-09 19:37 | P.PN ---
Progress Note - Text Progress Note Date: 12/09/19 - Chief Complaint Right knee surgery Consultation: This is a 69-year-old patient of Dr. Selby. Patient has undergone right total knee arthroplasty. Today-doing well. Pain better. Tolerated diet. No other issues. Did work with therapy. Review of systems: Was done for constitutional, cardiovascular, GI, pulmonary. relevant finding as above Current medications reviewed in today's electronic records Physical examination: VITAL SIGNS: 98.9, 76, 16, 104/61, 95% room air GENERAL: Sitting up, comfortable EYES: Pupils equal. Conjunctiva normal. NECK: JVD not raised; masses not palpable. HEART: First and second heart sounds are normal; no edema. LUNGS: Respiratory rate normal; clear to auscultation. ABDOMEN: Soft, nontender, liver spleen not palpable, no masses palpable. PSYCH: Oriented 3, sleepy but arousablel. MUSCULAR skeletal: Dressing over the right knee. Evidence of OA the hands Investigations: White count 6.9 hemoglobin 12.5 Assessment: -Right total knee arthroplasty -Primary osteoarthritis -Anxiety not otherwise specified -Postop nausea as a side effect of medications -Obesity BMI 32.9 Plan: Stable. Tolerated diet. Continue current medication. Follow with PCP upon discharge. Thank you Dr. Suresh
== END 2019-12-09 14:52 | disposition home health service (06) ==
LOC: OR 08:14 → 4SSUR 11:53 → OR 12-09 14:52
PROVIDERS: ATTEND Orthopaedic Surgery
DX: M17.11 Unilateral primary osteoarthritis, right knee (principal); F41.9 Anxiety disorder, unspecified; K21.9 Gastro-esophageal reflux disease without esophagitis; F32.9 Major depressive disorder, single episode, unspecified; M35.00 Sjogren syndrome, unspecified; E78.00 Pure hypercholesterolemia, unspecified; E66.9 Obesity, unspecified; Z88.0 Allergy status to penicillin; Z88.2 Allergy status to sulfonamides; Z88.8 Allergy status to other drugs, medicaments and biological substances; Z79.1 Long term (current) use of non-steroidal anti-inflammatories (NSAID); Z79.899 Other long term (current) drug therapy; Z90.49 Acquired absence of other specified parts of digestive tract; Z98.891 History of uterine scar from previous surgery; Z98.890 Other specified postprocedural states; Z85.820 Personal history of malignant melanoma of skin; Z68.34 Body mass index [BMI] 34.0-34.9, adult; Z90.79 Acquired absence of other genital organ(s); Z83.3 Family history of diabetes mellitus; Z82.49 Family history of ischemic heart disease and other diseases of the circulatory system; Z80.51 Family history of malignant neoplasm of kidney
CPT/HCPCS: 97110; 97161; 64448; 76942; 85025; 73560; 27447; C1776; C1713; J2250; J0171; J0690 ×3; J2405; J3010; J1885; J1650 ×2; J1170 ×3; J2795 ×2; J2704; J0735; 88305; 88311

== ENCOUNTER → 2020-04-28 | Outpatient (CLI) | payer MEDICARE | END | disposition home or self-care (01) | LOC: LABWHC1 07:16 | PROVIDERS: ATTEND Orthopaedic Surgery | DX: Z01.812 Encounter for preprocedural laboratory examination (principal) | CPT/HCPCS: 87070 ==

== ENCOUNTER 2020-05-10 10:05 | Day surgery (SDC) | payer MEDICARE ==
[2020-05-03 12:01] VITALS: BMI 31.1
--- NOTE | 2020-05-09 12:44 | HP ---
HISTORY AND PHYSICAL REASON FOR ADMISSION: Surgery scheduled for 05/10/2020 HISTORY OF PRESENT ILLNESS: Luzma You is a 69-year-old patient seen with symptomatic left knee osteoarthritis. We discussed options for treatment. She elected to proceed with left total knee arthroplasty. Consent regarding the procedure was obtained. Medical clearance was provided by Dr. Vladimir Selby. PAST MEDICAL HISTORY: Noncontributory. PAST SURGICAL HISTORY: Carpal tunnel release, section, cholecystectomy, right total knee arthroplasty, left knee arthroscopy. MEDICATIONS: Zoloft, tramadol. ALLERGIES: PENICILLIN, BACTRIM. SOCIAL HISTORY: She denies tobacco use. PHYSICAL EXAMINATION: Evaluation of the left knee: Her range of motion is -2 to 120. Tenderness medial joint line. Crepitus medial and patellofemoral compartments with range of motion. Pain with patellofemoral compression. Ligaments stable. Hip rotation without pain. Distal neurovascular exam is intact. RADIOGRAPHS: Radiographs of the left knee reveal severe osteoarthritic changes. IMPRESSION: Left knee osteoarthritis. PLAN: Left total knee arthroplasty. Surgery is 05/10/2020. MMODL / IJN: [id number] /
[~2020-05-10 10:05] MED LIST changes: -ACETAMINOPHEN TAB 500 MG TAB PO ONE; +ACETAMINOPHEN TAB 500 MG TAB PO PRN; +DEXAMETHASONE SOD PHOSPHATE 4 MG/ML 1 ML VIAL IV ONE; -HYDROmorphone 0.5 MG/0.5 ML SYRINGE IVP PRN; -LIDOCAINE 1% (10MG/ML) FOR IV START INTRADERMA PRN; -MELOXICAM 7.5 MG TAB PO ONE; +MELOXICAM 7.5 MG TAB PO PRN; +MIDAZOLAM 2 MG/2 ML VIAL IV PRN; -ROPIVACAINE 246.25 MG, EPINEPHrine 0.5 MG, KETOROLAC 30 MG, cloNIDine HCL/PF 80 MCG, WA... MISCELLANE ONE; +ROPIVACAINE/EPI/CLONIDINE/KET 50 ML SYRINGE MISCELLANE PRN; -TRANEXAMIC ACID 1,000 MG in SODIUM CHLORIDE 0.9% 100 ML IVPB ONE; +TRANEXAMIC ACID 1,000 MG in SODIUM CHLORIDE 0.9% 100 ML IVPB PRN; +fentaNYL (PF) 50 MCG/ML 2 ML AMP IV PRN
[2020-05-10] MEDS ORDERED: SCOPOLAMINE 1.5MG/72HR PATCH TRANSDERM ONE (11:00)
[2020-05-10] MEDS ORDERED: fentaNYL (PF) 50 MCG/ML 2 ML AMP IV ONE (11:22)
[2020-05-10] MEDS ORDERED: MIDAZOLAM 2 MG/2 ML VIAL ONE (11:55)
[2020-05-10] MEDS ORDERED: PROPOFOL 10 MG/ML 20 ML VIAL IV ONE (11:55)
[2020-05-10] MEDS ORDERED: SODIUM CHLORIDE 0.9% 100 ML BAG ONE (11:55)
[2020-05-10] MEDS ORDERED: TRANEXAMIC ACID 1,000 MG/10 ML VIAL ONE (11:55)
[2020-05-10] MEDS ORDERED: LACTATED RINGERS 1,000 ML IV ONE (12:31)
--- NOTE | 2020-05-10 13:28 | P.ANPRN ---
Procedure Note - Anesthesia - Nerve Block Performed Left Adductor Canal Infusion Time Out Performed: Yes (1121) Date of Procedure: 05/10/20 Procedure Start Time: Procedure Stop Time: Location of Patient: PreOp Indication: Acute Post-Operative Pain, Requested by Surgeon Specifically requested for management of pain by DrGeorgiana: Joseph Rodney Sedation Type: Sedate with meaningful contact maintained Preparation: Sterile Prep Position: Supine Catheter Depth at Skin (cm): 8 Catheter: Indwelling Needle Types: Pajunk Needle Gauge: 21 Ultrasound used to visualize needle placement: Yes Ultrasound used to observe medication spread: Yes Injectate: 0.5% Ropivacaine (see comment for volume) (20CC) Blood Aspirated: No Pain Paresthesia on Injection Noted: No Resistance on Injection: Normal Image Stored and Saved: Yes Events: Uneventful and Well Tolerated
[2020-05-10] MEDS ORDERED: ACETAMINOPHEN TAB 325 MG TAB PO PRN (14:00)
[2020-05-10] MEDS ORDERED: NALOXONE 0.4 MG/ML 1 ML VIAL IV PRN (14:00)
[2020-05-10] MEDS ORDERED: HYDROmorphone 0.2 MG/1 ML SYRINGE IVP PRN (14:00)
[2020-05-10] MEDS ORDERED: ONDANSETRON 4 MG/2 ML VIAL IVP PRN (14:00)
[2020-05-10] MEDS ORDERED: HYDROmorphone 0.5 MG/0.5 ML SYRINGE IVP PRN ×2 (14:00)
--- NOTE | 2020-05-10 14:00 | P.OP ---
Date of Procedure: 05/10/20 Preoperative Diagnosis: Left knee osteoarthritis Postoperative Diagnosis: Left knee osteoarthritis Procedure(s) Performed: Left total knee arthroplasty Implants: 1. Depuy attune size 5 narrow left cruciate retaining cemented femur 2. Depuy attune size 4 fixed bearing cemented tibial baseplate 3. Depuy attune size 5 fixed bearing cruciate retaining 14 mm polyethylene tibial insert 4. Depuy attune 35 mm all polyethylene cemented patella Anesthesia: regional (Adductor canal catheter), local, spinal Surgeon: Joseph Rodney Executive Kitchen Manager #1: Rj Floyd Estimated Blood Loss (ml): 45 Pathology: other (Bone) Condition: stable Disposition: PACU Indications for Procedure: 69-year-old patient seen with symptomatic left knee osteoarthritis. After treatment options were discussed, she elected to proceed with total knee arthroplasty. Operative Findings: See description of procedure Description of Procedure: Patient was taken to the operative suite after having an adductor canal catheter placed by the department of anesthesia. Patient underwent a spinal anesthetic by the department of anesthesia. Patient was given preoperative IV intake antibiotics and TXA. A well-padded tourniquet was placed about the left lower extremity. The lower extremity was then prepped and draped in the normal sterile orthopedic fashion. The extremity was elevated, a tourniquet was insufflated to 300. A standard anterior incision was made sharply through skin. Dissection was taken down through the subcutaneous soft tissues down to the extensor mechanism. A medial arthrotomy was performed, patella was everted and knee was flexed. There was advanced osteoarthritis noted. I introduced my distal intramedullary femoral drill. I then introduced the distal femoral cutting jig. Kendall ALEMAN secured the cutting jig with 2 pins. I held retractors in position while Kendall ALEMAN performed the distal femoral resection through the guide area we now removed her distal femoral cutting guide. We now placed our 4-in-1 femoral cutting block and positioned and it was secured with 2 pins by Kendall ALEMAN while I held the block in position. The distal femoral finishing was now completed. A proximal tibial cutting guide was positioned. I held the guide in the appropriate position with both hands well Kendall ALEMAN inserted stabilizing pins into the guide. Proximal tibial cut was made. I noted a retained metallic interference screw in the proximal tibia that was now exposed. I removed that without difficulty. I debrided out some of the soft tissue in that area as well. We now placed a trial femoral component into position, along with an appropriate size tibial tray and insert. We now took the knee through range of motion and had full extension good flexion and good overall soft tissue balance noted. The patella was everted and stabilized with 2 towel clips held by Kendall ALEMAN while I performed a flush with patellar quad tendon utilizing a fresh sawblade. We templated the patella, appropriate drill holes were made. An appropriate trial patella was positioned, knee was taken through full range of motion with the patella tracking very nicel y. The trial patella was removed. Drill holes were made through the femoral component. All trial components were removed after marking off the appropriate rotation of the tibia. Retractors were now positioned along the proximal tibia. An appropriate keel punch was made with the appropriate size tibial guide by myself on Kendall ALEMAN assisted by holding retractors. At this point appropriate size implants were chosen and opened. The joint was irrigated copiously with pulse lavage mechanical irrigation. The posterior capsule was infiltrated with local analgesic. The wound was irrigated with pulse lavage mechanical irrigation. We mixed antibiotic methylmethacrylate. We placed the knee into flexion. We placed multiple retractors assisted by Kendall ALEMAN to expose the proximal tibia. Once the methyl methacrylate was ready, the tibial component was cemented into place removing any excess methylmethacrylate form by both myself and Kendall ALEMAN. The femoral component was cemented into place removing the removing any excess methylmethacrylate performed by both myself and Kendall ALEMAN. We then inserted the appropriate size polyethylene tibial insert. We made sure that it was locked into position. We took the knee into full extension, and then back in a flexion making sure we had removed any excess methylmethacrylate. The patellar component was then cemented down and secured with clamp. Excess methylmethacrylate removed. We kept the knee in full extension, patellar clamp in position until methylmethacrylate had hardened. Once it had hardened the patellar clamp was removed. The knee was taken through full range of motion. The patella tracked nicely. There was good soft tissue balancing. The tourniquet was now released. Additional hemostasis was achieved via electrocautery. A second gram of TXA was given. The wound again was irrigated with pulse lavage mechanical irrigation. The superficial soft tissues were infiltrated local analgesic. The extensor mechanism was repaired with Vicryl. We checked the repair with range of motion and it was stable. The subcutaneous soft tissues were repaired with Vicryl in layers. The skin was approximated with pernio/Dermabond. Sterile dressings were applied followed by loose web roll and Robb bandage. The patient was transferred to a bed, and taken to recovery in stable and satisfactory condition. Kendall ALEMAN assisted with this complex procedure.
[2020-05-10] MEDS ORDERED: ROPIVACAINE 0.2%-NS ON-Q PUMP 1,090 MG, EMPTY PAIN BALL 1 EACH MISCELLANE PRN (14:45)
--- NOTE | 2020-05-10 15:07 | XR ---
EXAMINATION TYPE: XR knee limited LT DATE OF EXAM: 05/10/2020 CLINICAL HISTORY: pain TECHNIQUE: Three views of the left knee are obtained. COMPARISON: None. FINDINGS: There is no acute fracture/dislocation. The tri-compartment joint spaces appear within no rmal limits. The overlying soft tissue appears unremarkable. IMPRESSION: There is no acute fracture or dislocation ICD 10 NO FRACTURE, INITIAL EVALUATION
[2020-05-10] MEDS: LACTATED RINGERS 1,000 ML IV SCH (15:30)
[2020-05-10] MEDS: traMADol 50 MG TAB PO PRN ×2 (16:32→22:04)
[2020-05-10] MEDS ORDERED: SENNOSIDES-DOCUSATE SODIUM 1 EACH TAB PO SCH (21:00)
[2020-05-10] MEDS ORDERED: SERTRALINE 50 MG TAB PO SCH (21:05)
[2020-05-10] MEDS ORDERED: DOCUSATE 100 MG CAP PO PRN (21:05)
[2020-05-10] MEDS: CHOLECALCIFEROL 25 MCG (1000 IU) TABLET PO SCH (22:04)
[2020-05-11] MEDS: traMADol 50 MG TAB PO PRN ×2 (04:32→11:01)
[2020-05-11] MEDS: LACTATED RINGERS 1,000 ML IV SCH (04:39)
[2020-05-11 06:25] LABS: Basophils % (A) 0 %; Eosinophils % (A) 0 %; HCT 39.3 % (34.0-46.0); Lymphocytes # (A) 1.8 k/uL (1.0-4.8); Lymphocytes % (A) 17 %; MCH 30.5 pg (25.0-35.0); MCV 92.6 fL (80.0-100.0); Mean Platelet Volume 8.1; Monocytes # (A) 0.6 k/uL (0-1.0); Monocytes % (A) 6 %; Neutrophils # (A) 8.1 k/uL (1.3-7.7); Neutrophils % (A) 75 %; Platelet Count 181 k/uL (150-450); RBC 4.25 m/uL (3.80-5.40); RDW 13.5 % (11.5-15.5); WBC 10.7 k/uL (3.8-10.6)
--- NOTE | 2020-05-11 06:39 | P.PN ---
Progress Note - Text Progress Note Date: 05/11/20 POD 1 TKR, doing well, pain controlled. using prn meds, able to ambulate, post knee pain is mild. site is clean
[2020-05-11 07:45] VITALS: BP 132/72; PULSE 66; RESP 16; TEMP 98.4
[2020-05-11] MEDS ORDERED: LACTOBACILLUS ACIDOPH & BULGAR 1 EACH PACKET PO SCH (09:00)
[2020-05-11] MEDS ORDERED: ENOXAPARIN 30 MG/0.3 ML SYRINGE SQ SCH (09:00)
[2020-05-11] MEDS: CHOLECALCIFEROL 25 MCG (1000 IU) TABLET PO SCH (09:00)
--- NOTE | 2020-05-11 12:30 | P.PN ---
Progress Note - Text Progress Note Date: 05/11/20 Patient is seen status post left total knee arthroplasty. She reports she is doing well. She is ready to be discharged. Incision area stable. Distal neurovascular exam is intact. Negative Ben negative Homans. Impression: Status post left total knee arthroplasty Plan: Discharge to home today
--- NOTE | 2020-05-11 12:43 | P.DS ---
Providers Date of admission: 05/10/2020 Expected date of discharge: 05/11/20 Attending physician: Joseph Rodney Consults: 05/10/20 14:00 Consult Physician Routine Consulting Provider: Khari Barragan Consult Reason/Comments: Medical management Do you want consulting provider notified?: Yes Primary care physician: Vladimir [facility] Hospital Course: 69-year-old patient was seen with left knee osteoarthritis. She elected to proceed left total knee arthroplasty. She underwent total knee arthroplasty with an unremarkable postoperative course. Procedures: Left total knee arthroplasty Patient Condition at Discharge: Good Plan - Discharge Summary Discharge Rx Participant: Yes New Discharge Prescriptions: New traMADol HCL [Ultram] 50 mg PO Q6HR PRN 7 Days #56 tab PRN Reason: Pain Aspirin [Adult Low Dose Aspirin EC] 81 mg PO BID #60 tablet. Docusate [Colace] 100 mg PO DAILY #30 capsule No Action Sertraline HCl 50 mg PO 1999 Cholecalciferol [Vitamin D3 (25 Mcg = 1000 Iu)] 2,000 unit PO DAILY Acetaminophen [Tylenol Extra Strength] 500 mg PO DIRECTED PRN PRN Reason: Pain traMADol HCl [Ultram] 50 - 100 mg PO Q6H PRN PRN Reason: Pain Vitamin E Tab 180 mg PO HS L.acidoph,Paracasei, B.lactis [Probiotic] 2 each PO DAILY Docusate [Colace] 100 mg PO DAILY PRN PRN Reason: Constipation Discharge Medication List Cholecalciferol [Vitamin D3 (25 Mcg = 1000 Iu)] 2,000 unit PO DAILY 09/02/15 [History] Sertraline HCl 50 mg PO 199909/02/15 [History] Acetaminophen [Tylenol Extra Strength] 500 mg PO DIRECTED PRN 05/03/20 [History] Docusate [Colace] 100 mg PO DAILY PRN 05/03/20 [History] L.acidoph,Paracasei, B.lactis [Probiotic] 2 each PO DAILY 05/03/20 [History] Vitamin E Tab 180 mg PO HS 05/03/20 [History] traMADol HCl [Ultram] 50 - 100 mg PO Q6H PRN 05/03/20 [History] Aspirin [Adult Low Dose Aspirin EC] 81 mg PO BID #60 tablet. 05/11/20 [Rx] Docusate [Colace] 100 mg PO DAILY #30 capsule 05/11/20 [Rx] traMADol HCL [Ultram] 50 mg PO Q6HR PRN 7 Days #56 tab 05/11/20 [Rx] Follow up Appointment(s)/Referral(s): [facility],Equipment [NON-STAFF] - (Please call [facility] once home to arrange delivery of your Continuous Passive Motion (CPM) machine.) Vladimir Selby MD [Primary Care Provider] - 05/19/20 9:15 am Joseph Rodney DO [Doctor of Osteopathic Medicine] - 05/26/20 3:10 pm [facility], [NON-STAFF] - ([facility] will contact you to set up your first visit. Please contact them with any questions regarding your home care/home physical therapy. ) Activity/Diet/Wound Care/Special Instructions: 1. Weightbearing as tolerated with walker 2. Range of motion as tolerated 3. Do not remove dressing until evaluated by home health care 4. Contact office with any concerns or questions Discharge Disposition: HOME WITH HOME HEALTH SERVICES
[2020-05-11] MEDS ORDERED: VITAMIN E (DL,TOCOPHERYL ACET) 400 UNIT CAP PO SCH (21:00)
--- NOTE | 2020-05-12 11:52 | P.CONS ---
History of Present Illness - Reason for Consult Consult date: 05/11/20 Medical management Requesting physician: Joseph Rodney - History of Present Illness When i came to see the patient-patient is already discharged. Consultation not done. Past Medical History Past Medical History: Cancer, Liver Disease Additional Past Medical History / Comment(s): MELANOMA LT SHOULDER 2003, THEN TO LT NECK AND LYMPH NODES 2006, fatty liver, currently on antibioitic for foliculitis-will finish before surgery History of Any Multi-Drug Resistant Organisms: None Reported Past Surgical History: Section, Cholecystectomy, Joint Replacement, Orthopedic Surgery Additional Past Surgical History / Comment(s): one OOPHORECTOMY. LT KNEE LIGAMENT SURG-CADAVER USED. bunionectomy rt foot, josé miguel carpal tunnel. EXC MELANOMA SKIN LT SHOULDER; LATER HAD EXC FROM NECK AND LYMPH NODES. rt knee replacement Past Anesthesia/Blood Transfusion Reactions: Previous Problems w/ Anesthesia Additional Past Anesthesia/Blood Transfusion Reaction / Comm: TAKES LONG TIME TO AWAKEN FROM ANESTHESIA. Past Psychological History: Anxiety Smoking Status: Never smoker Past Alcohol Use History: None Reported Past Drug Use History: None Reported - Past Family History Father Family Medical History: Cancer Additional Family Medical History / Comment(s): kidney cancer Brother(s) Family Medical History: Deep Vein Thrombosis (DVT) Medications and Allergies Home Medications Medication Instructions Recorded Confirmed Type Cholecalciferol [Vitamin D3 (25 2,000 unit PO DAILY 09/02/15 05/03/20 History Mcg = 1000 Iu)] Sertraline HCl 50 mg PO 199909/02/15 05/03/20 History Acetaminophen [Tylenol Extra 500 mg PO DIRECTED PRN 05/03/20 05/03/20 History Strength] Docusate [Colace] 100 mg PO DAILY PRN 05/03/20 05/03/20 History L.acidoph,Paracasei, B.lactis 2 each PO DAILY 05/03/20 05/03/20 History [Probiotic] Vitamin E Tab 180 mg PO HS 05/03/20 05/03/20 History traMADol HCl [Ultram] 50 - 100 mg PO Q6H PRN 05/03/20 05/03/20 History Aspirin [Adult Low Dose Aspirin EC] 81 mg PO BID #60 tablet. 05/11/20 Rx Docusate [Colace] 100 mg PO DAILY #30 capsule 05/11/20 Rx traMADol HCL [Ultram] 50 mg PO Q6HR PRN 7 Days #56 tab 05/11/20 Rx Allergies Allergy/AdvReac Type Severity Reaction Status Date / Time hydroxychloroquine sulfate Allergy Mild Rash/Hives Verified 05/10/20 11:07 [From Plaquenil] Penicillins Allergy Itching Verified 05/10/20 11:07 sulfamethoxazole Allergy Swelling Verified 05/10/20 11:07 [From Bactrim] IN THROAT trimethoprim [From Bactrim] Allergy Swelling Verified 05/10/20 11:07 IN THROAT codeine AdvReac Nausea & Verified 05/10/20 11:07 Vomiting hydrocodone [From Vicodin] AdvReac Nausea & Verified 05/10/20 11:07 Vomiting Physical Exam Vitals: Vital Signs Temp Pulse Pulse Resp BP Pulse Ox 05/11/20 07:44 98.4 F 66 16 132/72 97 05/11/20 00:45 97.8 F 72 15 138/77 96 05/10/20 19:38 16 05/10/20 18:57 97.7 F 95 15 127/71 95 05/10/20 17:47 81 123/75 05/10/20 17:19 86 133/72 05/10/20 16:48 83 90/52 05/10/20 16:19 98 170/77 05/10/20 16:04 93 130/76 05/10/20 15:32 98.5 F 84 18 134/74 05/10/20 15:10 92 18 112/59 96 05/10/20 14:55 91 16 111/56 95 05/10/20 14:40 96 16 110/56 100 05/10/20 14:25 96.9 F L 109 H 20 127/56 99 Intake and Output 05/10/20 05/11/20 05/11/20 22:59 06:59 14:59 Intake Total 100 200 Balance 100 200 Intake: IV 100 Oral 200 Other: Voiding Method Toilet # Voids 1 1 Weight 77.111 kg Results CBC & Chem 7: 05/11/20 05:50 Labs: Abnormal Lab Results - Last 24 Hours (Table) 05/11/20 Range/Units 05:50 WBC 10.7 H (3.8-10.6) k/uL Neutrophils # 8.1 H (1.3-7.7) k/uL
== END 2020-05-11 13:59 | disposition home health service (06) ==
LOC: OR 10:05 → 4SSUR 14:25 → OR 05-11 13:59
PROVIDERS: ATTEND Orthopaedic Surgery
DX: M17.12 Unilateral primary osteoarthritis, left knee (principal); Z96.651 Presence of right artificial knee joint; F41.9 Anxiety disorder, unspecified; M35.00 Sjogren syndrome, unspecified; F32.9 Major depressive disorder, single episode, unspecified; E66.9 Obesity, unspecified; K21.9 Gastro-esophageal reflux disease without esophagitis; Z88.0 Allergy status to penicillin; Z88.2 Allergy status to sulfonamides; Z88.5 Allergy status to narcotic agent; K76.0 Fatty (change of) liver, not elsewhere classified; Z79.899 Other long term (current) drug therapy; Z79.82 Long term (current) use of aspirin; Z85.820 Personal history of malignant melanoma of skin; Z98.891 History of uterine scar from previous surgery; Z98.890 Other specified postprocedural states; Z90.721 Acquired absence of ovaries, unilateral; Z90.49 Acquired absence of other specified parts of digestive tract; Z68.31 Body mass index [BMI] 31.0-31.9, adult; Z83.3 Family history of diabetes mellitus; Z82.49 Family history of ischemic heart disease and other diseases of the circulatory system; Z80.51 Family history of malignant neoplasm of kidney
CPT/HCPCS: 27447; 97110; 97161; 64448; 76942; 85025; 73560; C1776; C1713; J2250; J1100; J0690 ×2; J2405; J3010; J1650; J2704; J2795; 88305; 88311

== ENCOUNTER → 2020-11-01 | Outpatient (CLI) | payer MEDICARE ==
[2020-11-01 16:05] LABS: ALT 14 U/L (4-34); AST 21 U/L (14-36); African American GFR (CKD) >90 (>60 ml/min/1.73 sqM); Albumin 4.2 g/dL (3.5-5.0); Alkaline Phosphatase 96 U/L (38-126); Anion Gap 8 mmol/L; Blood Urea Nitrogen 16 mg/dL (7-17); Calcium 9.2 mg/dL (8.4-10.2); Carbon Dioxide 26 mmol/L (22-30); Chloride 106 mmol/L (98-107); Glucose 143 mg/dL (74-99); Non-African American GFR(CKD) 89 (>60 ml/min/1.73 sqM); Potassium 4.2 mmol/L (3.5-5.1); Sodium 140 mmol/L (137-145); Total Bilirubin 0.2 mg/dL (0.2-1.3)
[2020-11-01 16:19] LABS: HCT 44.2 % (34.0-46.0); HGB 14.2 gm/dL (11.4-16.0); MCH 30.1 pg (25.0-35.0); MCHC 32.3 g/dL (31.0-37.0); MCV 93.2 fL (80.0-100.0); Mean Platelet Volume 8.1; Platelet Count 214 k/uL (150-450); RBC 4.74 m/uL (3.80-5.40); RDW 14.6 % (11.5-15.5); WBC 8.5 k/uL (3.8-10.6)
--- NOTE | 2020-11-01 16:50 | CT ---
EXAMINATION TYPE: CT brain w con DATE OF EXAM: 11/01/2020 COMPARISON: None HISTORY: pain and swlling in neck CT DLP: 1081.6 mGycm Automated exposure control for dose reduction was used. CONTRAST: Performed with IV Contrast, patient injected with 100 mL of Isovue 300. Images obtained from the skull base to the vertex of the brain with IV contrast. Ventricles have normal size. There is no mass effect nor midline shift. There is no sign of intracran ial hemorrhage. Calvarium is intact. There is no pathologic enhancement. There is minimal cerebral at rophy. Skull base appears intact. IMPRESSION: Minimal cerebral atrophy. Otherwise negative exam.
--- NOTE | 2020-11-01 16:58 | CT ---
EXAMINATION TYPE: CT soft tissue neck w con DATE OF EXAM: 11/01/2020 COMPARISON: 09/29/2014 HISTORY: pain and swlling in neck CT DLP: 494.2 mGycm Automated exposure control for dose reduction was used. CONTRAST: Performed with IV Contrast, patient injected with 100 mL of Isovue 300. Images obtained from the pulmonary artery to the top of the orbits with IV contrast. There is no evidence of mediastinal adenopathy. Thyroid gland is symmetric. There is no evidence of t hyroid mass. Trachea appears normal. Epiglottis is normal. Subglottic trachea appears normal. There i s no evidence of pharyngeal mass. Prevertebral soft tissues are intact. Tonsils and adenoids appear n ormal. The parotid glands are symmetric. Submandibular salivary glands are symmetric. There are multiple laurie gical clips on the left side of the neck. I see no cervical adenopathy. Mandibular ring is intact. Maxilla and bony orbits appear intact. There is no evidence of retro-orbit al mass. There is fairly normal aeration of the paranasal sinuses. There is some minimal subcutaneous nodularity over the posterior neck bilaterally. These could BE some enlarged lymph nodes that appear new compared to old exam. These are seen bilaterally and measure up to 9 mm in maximum dimension. Th ere is normal enhancement of the carotid arteries and jugular veins. There is normal enhancement of t he vertebral arteries. There is multilevel cervical spondylotic changes. There is disc space narrowing and spur formation fr om C4 to C7. The visualized lung valle appear clear. IMPRESSION: There are some new subcutaneous apparent enlarged bilateral posterior lymph nodes compared to old exa m. Previous neck surgery. No evidence of any anterior neck mass.
== END | disposition home or self-care (01) ==
LOC: RADCTMAIN 15:16
PROVIDERS: ATTEND Physician Assistant Medical
DX: G31.9 Degenerative disease of nervous system, unspecified (principal)
CPT/HCPCS: 80053; 85027; 70491; 70460; 36415; Q9967

== ENCOUNTER → 2022-11-10 | Outpatient (CLI) | payer MEDICARE ==
[2022-11-10 13:47] LABS: HCT 42.8 % (37.2-46.3); HGB 13.7 d/dL (12.0-15.0); MCH 29.8 pg (27.0-32.0); MCV 93.2 FL (80.0-97.0); Mean Platelet Volume 11.1 FL (9.5-12.2); NRBC Per 100 WBC 0 X 10*3/uL (0.00-0.01); Platelet Count 256 X 10*3/uL (140-440); RBC 4.59 X 10*6/uL (4.10-5.20); WBC 4.55 X 10*3/uL (4.50-10.00)
[2022-11-10 13:48] LABS: Basophils # (A) 0.04 X 10*3/uL (0.00-0.10); Basophils % (A) 0.9 %; Eosinophils # (A) 0.08 X 10*3/uL (0.04-0.35); Eosinophils % (A) 1.8 %; Immature Grans, Automated 0 %; Lymphocytes # (A) 1.62 X 10*3/uL (0.90-5.00); Lymphocytes % (A) 35.6 %; Monocytes # (A) 0.47 X 10*3/uL (0.20-1.00); Monocytes % (A) 10.3 %; Neutrophils # (A) 2.34 X 10*3/uL (1.80-7.70); Neutrophils % (A) 51.4 %
[2022-11-10 14:58] LABS: ALT 18 U/L (8-44); AST 22 U/L (13-35); Albumin 4.5 d/dL (3.8-4.9); Alkaline Phosphatase 77 U/L (41-126); Blood Urea Nitrogen 18.4 mg/dL (9.0-27.0); Calcium 9.7 mg/dL (8.7-10.3); Carbon Dioxide 24.5 mmol/L (21.6-31.8); Chloride 105 mmol/L (96-109); Chol/HDL Ratio 4.74 Ratio; Globulin 2.5 d/dL (1.6-3.3); Glucose 100 mg/dL (70-110); LDL Cholesterol,Calculated 144.2 mg/dL (0.0-131.0); Potassium 5.2 mmol/L (3.5-5.5); Sodium 141 mmol/L (135-145); Total Bilirubin 0.3 mg/dL (0.3-1.2)
== END | disposition home or self-care (01) ==
LOC: LABWHC1 07:10
PROVIDERS: ATTEND Physician Assistant Medical
DX: Z13.220 Encounter for screening for lipoid disorders (principal); R10.11 Right upper quadrant pain
CPT/HCPCS: 36415; 80053; 80061; 85025

== ENCOUNTER → 2022-11-13 | Outpatient (CLI) | payer MEDICARE ==
--- NOTE | 2022-11-15 13:34 | MR ---
EXAMINATION TYPE: MR abdomen wo/w con DATE OF EXAM: 11/13/2022 3:12 PM INDICATION: Patient age:Female; 72 years old; Reason for study: R10.11; PHH. 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 TECHNIQUE: Multiplanar multi-sequence imaging was performed without contrast. Post contrast imaging was performed. Post IV contrast subtraction images were also submitted for review. IV Contrast: 7 cc Gadavist FINDINGS: LOWER CHEST: No gross irregularity. ABDOMEN Liver: Unremarkable. Gallbladder and Bile ducts: Extrahepatic biliary dilation with common bile duct measuring up to 7 mm. The gallbladder is not definitively visualized. No filling defect to suggest choledocholithiasis. Pancreas: Unremarkable. Spleen: Unremarkable. Adrenal glands: Unremarkable. Kidneys: No evidence for hydronephrosis. Suspected bilateral high T2 signal Stomach and Bowel: There is a large hiatal hernia present. Majority of stomach in the thorax. Peritoneum: No evidence of pneumoperitoneum or free fluid. Vasculature: Unremarkable. No aortic aneurysm. Musculoskeletal: The osseous structures appear intact. Lymph Nodes: No gross evidence for lymphadenopathy. Abdominal wall: The right upper quadrant ribs and intra-abdominal contents are grossly unremarkable. The liver is without suspicious lesion. No bony edema definitively visualized within the ribs itself. IMPRESSION: 1. No abnormal postcontrast enhancement. No evidence for acute process. 2. Large hiatal hernia with majority of the stomach in the thorax. 3. Dilation of the extra hepatic biliary system which can be seen in normal post cholecystectomy phy siology. No evidence for choledocholithiasis.
== END | disposition home or self-care (01) ==
LOC: RADMRIMAIN 14:15
PROVIDERS: ATTEND Family Medicine
DX: K44.9 Diaphragmatic hernia without obstruction or gangrene (principal); Z85.820 Personal history of malignant melanoma of skin; Z90.49 Acquired absence of other specified parts of digestive tract
CPT/HCPCS: 74183; A9585

== ENCOUNTER → 2023-02-09 | Outpatient (CLI) | payer MEDICARE | END | disposition home or self-care (01) | LOC: LABWHC1 15:29 | PROVIDERS: ATTEND Internal Medicine Gastroenterology | DX: R14.0 Abdominal distension (gaseous) (principal) | CPT/HCPCS: 36415; 83516 ==

== ENCOUNTER → 2023-07-20 | Outpatient (CLI) | payer MEDICARE ==
--- NOTE | 2023-07-20 15:17 | CT ---
EXAMINATION TYPE: CT abdomen pelvis wo con DATE OF EXAM: 07/20/2023 COMPARISON: CT abdomen dated 11/21/[address] abdomen and pelvis dated 10/28/2014 HISTORY: LLQ pain CT DLP: 913 mGycm Automated exposure control for dose reduction was used. TECHNIQUE: Helical acquisition of images was performed from the lung bases through the pelvis. FINDINGS: The lungs are clear. There is surgical absence of the gallbladder. There is no biliary ductal dilatation. There is no organomegaly of the liver, pancreas, spleen or adrenal glands. There are no renal calcifications or hydronephrosis. There are multiple tiny calcifications in the le ft hemipelvis which were present on the prior study dated 10/28/2014 are unchanged. They appear to lie outside the distal left ureter and are most likely phleboliths. The caliber of the abdominal aorta is normal and there is no retroperitoneal adenopathy or hemorrhage . The bowel loops are normal in caliber is no evidence of obstruction. No inflammatory changes are iden tified in the mesentery and there is no free intraperitoneal air or fluid. There is diverticulosis of the sigmoid colon but no evidence of acute diverticulitis. There is no pelvic mass, free fluid, abscess or adenopathy. There is mild diverticulosis of the colon without CT evidence of diverticulitis. The osseous structures and soft tissues are unremarkable. IMPRESSION: No acute changes within the abdomen or pelvis.
== END | disposition home or self-care (01) ==
LOC: RADCTMAIN 13:54
PROVIDERS: ATTEND Family Medicine
DX: R10.32 Left lower quadrant pain (principal)
CPT/HCPCS: 74176

== ENCOUNTER → 2023-07-23 | Outpatient (CLI) | payer MEDICARE ==
[2023-07-23 11:00] LABS: HGB 13.8 g/dL (12.0-15.0); MCH 29.6 pg (27.0-32.0); MCHC 32.1 g/dL (32.0-37.0); MCV 92.3 FL (80.0-97.0); Mean Platelet Volume 11.3 FL (9.5-12.2); NRBC Per 100 WBC 0 X 10*3/uL (0.00-0.01); Platelet Count 244 X 10*3/uL (140-440); RBC 4.66 X 10*6/uL (4.10-5.20); RDW 15.3 % (11.5-14.5); WBC 4.23 X 10*3/uL (4.50-10.00)
[2023-07-23 11:10] LABS: ALT 13 U/L (8-44); AST 19 U/L (13-35); Albumin 4.2 g/dL (3.8-4.9); Albumin/Globulin Ratio 1.62 Ratio (1.60-3.17); Alkaline Phosphatase 79 U/L (41-126); BUN/Creat Ratio 22.71 Ratio (12.00-20.00); Blood Urea Nitrogen 15.9 mg/dL (9.0-27.0); Calcium 9.6 mg/dL (8.7-10.3); Carbon Dioxide 24.3 mmol/L (21.6-31.8); Chloride 106 mmol/L (96-109); Chol/HDL Ratio 4.65 Ratio; Globulin 2.6 g/dL (1.6-3.3); Glucose 107 mg/dL (70-110); LDL Cholesterol,Calculated 126.8 mg/dL (0.0-131.0); Potassium 4.5 mmol/L (3.5-5.5); Sodium 140 mmol/L (135-145); Total Bilirubin 0.4 mg/dL (0.3-1.2); Total Protein 6.8 g/dL (6.2-8.2)
== END | disposition home or self-care (01) ==
LOC: LABWHC1 07:17
PROVIDERS: ATTEND Physician Assistant Medical
DX: Z00.01 Encounter for general adult medical examination with abnormal findings (principal); R73.03 Prediabetes
CPT/HCPCS: 36415; 80053; 80061; 85027

== ENCOUNTER → 2023-09-13 | Outpatient (CLI) | payer MEDICARE ==
--- NOTE | 2023-09-14 12:52 | MM ---
Reason for Exam: Screening (asymptomatic). Last mammogram was performed 1 year(s) and 2 month(s) ago. Patient History: Menarche at age 10. First Full-Term at age 18. Left ovary removed at age 1. Risk Values: Karen 5 year model risk: 1.6%. NCI Lifetime model risk: 3.7%. Prior Study Comparison: 05/16/2021 Bilateral Screening Mammogram, [facility]. 06/29/2022 Bilateral Screening Mammogram, [facility]. Tissue Density: There are scattered areas of fibroglandular density. Findings: Analyzed By CAD. The pattern is symmetrical. There are scattered benign-appearing round calcifications. No suspicious groups of microcalcifications, spiculated or lobular masses, architectural distortion or other secondary signs of malignancy are mammographically apparent. Overall Assessment: Benign, BI-RAD 2 Management: Screening Mammogram of both breasts in 1 year. A negative mammogram report should not preclude additional follow up of suspicious palpable abnormalities. Patient should continue monthly self breast exam. A clinical breast exam by your physician is recommended on an annual basis and results should be correlated with mammographic findings. Note on Karen scores and lifetime risk: 1. A Karen score greater than 3% is considered moderate risk. If this is the case, consider specialist referral to assess eligibility for a risk reducing agent. 2. If overall lifetime risk for the development of breast cancer is 20% or higher, the patient may qualify for future screening with alternating mammogram and breast MRI. Electronically signed and approved by: Adán Mendoza D.O. Radiologis
== END | disposition home or self-care (01) ==
LOC: RADMAMWWP 08:26
PROVIDERS: ATTEND Family Medicine
DX: Z12.31 Encounter for screening mammogram for malignant neoplasm of breast (principal)
CPT/HCPCS: 77063; 77067

== ENCOUNTER → 2023-10-03 | Outpatient (CLI) | payer MEDICARE ==
--- NOTE | 2023-10-06 23:04 | NM ---
EXAMINATION TYPE: NM bone scan whole body DATE OF EXAM: 10/03/2023 COMPARISON: Nuclear medicine bone scan 06/12/2013, CT abdomen pelvis 07/20/2023 HISTORY: Malignancy Delayed whole-body scanning was performed following the injection of 23.7 mCi Tc 99m MDP. Images wer e acquired 3 hours post injection. FINDINGS: There is some increased uptake in the region of L1. This is nonspecific. Correlation with plain film is recommended. Trauma and metastasis are within the differential. There is increased uptake within the thoracolumbar spine. Degenerative changes and metastasis could b e within the differential this level. There is some increased uptake at the right sternoclavicular junction. Degenerative changes metastasi s and trauma could be considered. There is marked increased uptake within the bilateral ankles and in the first metatarsophalangeal ronak nt of the left foot. These findings are likely related to degenerative change. Additional degenerativ e change may be in the posterior left mid neck and at the bilateral shoulders. There is increased uptake at the knees with bilateral photopenic defects from prostheses. COMPARISON: Uptake within the region of L1 appears new. Uptake through the thoracolumbar spine otherw ise appears increased from comparison. Corresponding abnormality on the recent CT to suggest metastas is is not evident. Findings could be related to the degenerative disc changes. Uptake within the bilateral ankles appears stable. Uptake within the right first metatarsal is dimini shed in the left first metatarsal is increased from comparison dated uptake at the clavicle is increa sed from comparison IMPRESSION: 1. Increased or new uptake at the right sternoclavicular junction, the L1 level through the thoracolu mbar junction pedicles. 2. There are additional areas of uptake more suggestive for degenerative changes.
== END | disposition home or self-care (01) ==
LOC: RADNMMAIN 07:39
PROVIDERS: ATTEND Family Medicine
DX: Z85.89 Personal history of malignant neoplasm of other organs and systems (principal)
CPT/HCPCS: 78306; A9503

== ENCOUNTER → 2024-02-22 | Outpatient (CLI) | payer MEDICARE ==
--- NOTE | 2024-02-24 11:11 | MR ---
EXAMINATION TYPE: MR brain/cspine wo/w DATE OF EXAM: 02/22/2024 9:52 PM COMPARISON: 09/12/2014 CLINICAL INDICATION: Female, 73 years old with history of M54.2 CERVICALGIA, Hearing loss right side, Hx Skin cancer Lt shoulder and neck 2003, Lymph nodes removed 2006, Neck pain, into Left shoulder an d Lt ear, muscle spasms, Weak left arm, TECHNIQUE: Multi planar, multi sequence imaging was performed through the brain including: T1, T2, Inversion rec overy, Diffusion weighted imaging, and gradient echo imaging. No gadolinium was given. Multi planar, multi sequence imaging was performed utilizing: T1-weighted, T2-weighted, and turbo inv ersion recovery imaging of the cervical spine. IV Contrast: 8 mL Gadavist FINDINGS: No abnormality involving the right internal auditory canal/right temporal bone to explain patient's h earing loss. The hall-white junctions, ventricular system, basal cisterns appear unremarkable. Patchy areas of h igh T2 signal intensity are seen within the periventricular white matter. Midline structures show no abnormality. Diffusion-weighted imaging shows no evidence of restricted diffusion. The susceptibility weighted images do not reveal any evidence for micro-hemorrhage. Bilateral choroid plexus xanthogran ulomas. The bone marrow signal is within normal limits. Paranasal sinuses and mastoid air cells: No significant paranasal sinus disease. Visualized orbits: Orbital contents are intact. Alignment: The cervical vertebral bodies have preserved heights. Alignment is within normal limits gi armin patient positioning. Bones: Scattered Modic endplate changes with osteophytes and disc space narrowing. Multilevel degener ative disc disease is noted and most pronounced at the C5-C7 vertebral levels. Cord: The spinal cord is unremarkable with regards to their signal intensity and morphology. Discs: Multilevel disc desiccation is present. C2-C3: No significant disc pathology. The spinal canal is patent. Bilateral facet and uncovertebral joint arthropathy are present with mild left neural foraminal stenosis. The right neural foramen is p atent. C3-C4: A disc osteophyte complex is present which minimally narrows the ventral subarachnoid space. Bilateral facet and uncovertebral joint arthropathy are present with mild right and moderate to tessa re left neural foraminal stenosis. C4-C5: A disc osteophyte complex impresses upon the spinal cord anteriorly, spinal cord signal is luis ntained, mild spinal canal stenosis. Bilateral facet and uncovertebral joint arthropathy are present with mild bilateral neural foraminal stenosis. C5-C6: A disc osteophyte complex is present with mild to moderate spinal canal stenosis. Bilateral f acet and uncovertebral joint arthropathy are present with moderate bilateral neural foraminal stenosi s. C6-C7: No significant disc pathology. The spinal canal is patent. No neural foraminal stenosis. C7-T1: No significant disc pathology. The spinal canal is patent. No neural foraminal stenosis. Other: Susceptibility artifact from prior neck surgery identified. No enlarged lymph nodes identified within the neck. IMPRESSION: 1. Spinal canal stenosis worse at C5-C6 and C4-C5 with mild to moderate C5-C6 stenosis and disc oste ophyte complex impressing upon the spinal cord at C4-C5. 2. Multilevel disc degeneration with associated osteoarthritic changes. Neural foraminal stenosis wo rse on the left at C3-C4 with moderate to severe stenosis. 3. No evidence of intracranial mass or acute/subacute infarct. 4. Nonspecific white matter changes, likely secondary to small vessel ischemic disease. 5. No lymphadenopathy identified. [facility], Workstation: [id number], 02/24/2024 11:08 AM
== END | disposition home or self-care (01) ==
LOC: RADMRIMAIN 21:00
PROVIDERS: ATTEND Psychiatry & Neurology Neurology
DX: M48.02 Spinal stenosis, cervical region (principal); R20.2 Paresthesia of skin; R29.2 Abnormal reflex; H91.91 Unspecified hearing loss, right ear; R90.82 White matter disease, unspecified; M25.78 Osteophyte, vertebrae; Z85.828 Personal history of other malignant neoplasm of skin; Z85.820 Personal history of malignant melanoma of skin
CPT/HCPCS: 70553; 72156; A9585

== ENCOUNTER → 2024-07-30 | Outpatient (CLI) | payer MEDICARE ==
[2024-07-30 09:16] LABS: Basophils # (A) 0.04 10*3/uL (0.00-0.10); Basophils % (A) 0.9 %; Eosinophils # (A) 0.18 10*3/uL (0.04-0.35); Eosinophils % (A) 3.9 %; HCT 46.1 % (37.2-46.3); HGB 15.5 g/dL (12.0-15.0); Lymphocytes % (A) 38.6 %; MCH 31.9 pg (27.0-32.0); MCHC 33.6 g/dL (32.0-37.0); MCV 94.9 fL (80.0-97.0); Mean Platelet Volume 10.3 fL (9.5-12.2); Monocytes # (A) 0.45 10*3/uL (0.20-1.00); Monocytes % (A) 9.7 %; Neutrophils # (A) 2.18 10*3/uL (1.80-7.70); Neutrophils % (A) 46.7 %; Platelet Count 231 10*3/uL (140-440); RBC 4.86 10*6/uL (4.10-5.20); RDW 13.4 % (11.5-14.5); WBC 4.66 10*3/uL (4.50-10.00)
[2024-07-30 09:26] LABS: ALT 16 U/L (4-34); AST 23 U/L (14-36); African American GFR (CKD) >90 (>60 ml/min/1.73 sqM); Albumin 4.2 g/dL (3.5-5.0); Albumin/Globulin Ratio 1.5; Alkaline Phosphatase 69 U/L (38-126); Anion Gap 6 mmol/L; Blood Urea Nitrogen 18 mg/dL (7-17); Calcium 9.8 mg/dL (8.4-10.2); Carbon Dioxide 28 mmol/L (22-30); Chloride 106 mmol/L (98-107); Globulin 2.8 g/dL; Glucose 105 mg/dL (74-99); Lipase 60 U/L (23-300); Non-African American GFR(CKD) 83 (>60 ml/min/1.73 sqM); Potassium 5.1 mmol/L (3.5-5.1); Sodium 140 mmol/L (137-145); Total Bilirubin 0.5 mg/dL (0.2-1.3)
--- NOTE | 2024-07-30 11:11 | CT ---
EXAMINATION TYPE: CT abdomen pelvis w con CT DLP: 1189 mGycm, Automated exposure control for dose reduction was used. DATE OF EXAM: 07/30/2024 10:55 AM COMPARISON: CT abdomen pelvis 07/20/2023, CT abdomen 11/21/2017, abdominal ultrasound 11/06/2017, pelvic u ltrasound 08/12/2015 CLINICAL INDICATION:Female, 73 years old with history of R10.13 epigastric pain; Epigastric pain. TECHNIQUE: Standard CT of the abdomen and pelvis following the administration of 100 cc of Isovue 3 00 IV contrast material and oral contrast. Coronal and sagittal reformats were performed. FINDINGS: LOWER CHEST: The visualized lung bases are clear. Mild cardiomegaly. ABDOMEN LIVER: Unremarkable GALLBLADDER AND BILE DUCTS: Gallbladder is surgically absent with mild intrahepatic and extra hepatic biliary dilatation likely physiologic and a postcholecystectomy change. Similar to prior exam. The c ommon bile duct measures up to 11 mm at the pancreatic head. No evidence of choledocholithiasis. PANCREAS: Unremarkable. SPLEEN: Unremarkable. ADRENAL GLANDS: Unremarkable. KIDNEYS AND URETERS: No evidence of hydronephrosis or renal calculus. The kidneys enhance symmetrical ly. Couple of bilateral renal subcentimeter cortical cyst. No follow-up recommended. Contrast is demo nstrated within both collecting systems and proximal ureters on the delayed phase. PELVIS BLADDER: Unremarkable REPRODUCTIVE: Unremarkable. ABDOMEN & PELVIS STOMACH AND BOWEL: Tiny hiatal hernia, duodenum is unremarkable. Colonic diverticulosis without evide nce for acute diverticulitis. Mild amount of stool is present of the colon. Enteric contrast reaches the ileocecal junction. The appendix is within normal limits. No evidence of bowel obstruction. PERITONEUM: No evidence of pneumoperitoneum or free fluid. VASCULATURE: Mild atherosclerotic calcifications are present throughout the abdominal aorta and its b ranches. No evidence of aortic aneurysm. Pelvic phleboliths. MUSCULOSKELETAL: No acute osseous abnormalities. Mild retrolisthesis of L1 on L2. Multilevel degenera tive disc disease of the visualized thoracolumbar spine. Most pronounced at T12-L2. Increase lumbar l ordosis. LYMPH NODES: No evidence for lymphadenopathy. SOFT TISSUE/ABDOMINAL WALL: Unremarkable IMPRESSION: 1. No CT evidence for acute abdominal/pelvic process. 2. Colonic diverticulosis without evidence for acute diverticulitis. 3. Tiny hiatal hernia. [facility], , 07/30/2024 11:09 AM
[2024-07-30 18:18] LABS: Chol/HDL Ratio 3.41 Ratio; LDL Cholesterol,Calculated 92.2 mg/dL (0.0-131.0)
== END | disposition home or self-care (01) ==
LOC: RADCTMAIN 08:44
PROVIDERS: ATTEND Family Medicine
DX: Z00.01 Encounter for general adult medical examination with abnormal findings (principal); E78.5 Hyperlipidemia, unspecified; K57.30 Diverticulosis of large intestine without perforation or abscess without bleeding; K44.9 Diaphragmatic hernia without obstruction or gangrene
CPT/HCPCS: 80053; 80061; 83690; 85025; 74177; 36415; Q9967

== ENCOUNTER → 2024-10-21 | Outpatient (CLI) | payer MEDICARE ==
--- NOTE | 2024-10-21 10:11 | MM ---
Reason for Exam: Screening (asymptomatic). Last mammogram was performed 1 year(s) and 2 month(s) ago. Patient History: Menarche at age 10. First Full-Term at age 18. Left ovary removed at age 43. Risk Values: Karen 5 year model risk: 1.6%. NCI Lifetime model risk: 3.2%. Prior Study Comparison: 05/16/2021 Bilateral Screening Mammogram, [facility]. 06/29/2022 Bilateral Screening Mammogram, [facility]. 09/13/2023 Bilateral MG 3D screening mammo w/cad, [facility]. Tissue Density: There are scattered areas of fibroglandular density. Findings: Analyzed By CAD. There are scattered and loosely grouped small benign-appearing round calcifications bilaterally redemonstrated. There is no suspicious group of microcalcifications or new suspicious mass in either breast. Overall Assessment: Benign, BI-RAD 2 Management: Screening Mammogram of both breasts in 1 year. . Patient should continue monthly self-breast exams. A clinical breast exam by your physician is recommended on an annual basis. This exam should not preclude additional follow-up of suspicious palpable abnormalities. Note on Karen scores and lifetime risk: 1. A Karen score greater than 3% is considered moderate risk. If this is the case, consider specialist referral to assess eligibility for a risk reducing agent. 2. If overall lifetime risk for the development of breast cancer is 20% or higher, the patient may qualify for future screening with alternating mammogram and breast MRI. [facility], , 10/21/2024 10:09 AM. Electronically signed and approved by: Dominic Bradford M.D.
== END | disposition home or self-care (01) ==
LOC: RADMAMWWP 08:41
PROVIDERS: ATTEND Family Medicine
DX: Z12.31 Encounter for screening mammogram for malignant neoplasm of breast (principal); R92.323 Mammographic fibroglandular density, bilateral breasts
CPT/HCPCS: 77063; 77067